=== PATIENT | male | born 1985 | race Caucasian/White ===

== ENCOUNTER 2017-05-16 18:35 | Emergency (ER) | payer SELFPAY ==
[2017-05-16 18:40] VITALS: BP 121/75; PULSE 76; RESP 17; TEMP 99.3; O2SAT 96
--- NOTE | 2017-05-16 19:24 | EDPHY ---
H & P Stated Complaint: st/fever chills HPI/ROS: CHIEF COMPLAINT: Sore throat, strep throat HISTORY OF PRESENT ILLNESS: Patient woke this morning with severe sore throat and body aches. He has also felt these had a fever. Symptoms are moderate to severe. [place] throughout the day chronically. They have worsened throughout the day. No headache. No chest pain. No shortness of breath. No nausea or vomiting. No trauma or injury. No difficulty swallowing but it is painful. Has had strep in the past, and this feels exactly the same to him. No other associated complaints or modifying factors REVIEW OF SYSTEMS: Ten systems reviewed and are negative unless otherwise noted in the HPI PAST MEDICAL HISTORY: Denies any medical history other than previous strep infections SOCIAL HISTORY: Nonsmoker. 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 Moderate erythema over the posterior pharynx. Moderate erythema and exudate on bilateral tonsils. Tonsils are symmetrically enlarged. Uvula is midline. No peritonsillar abscess. Airway widely patent Neck: Normal inspection, supple, non-tender her anterior cervical lymphadenopathy Respiratory: Lungs are clear to auscultation. No wheezing, rhonchi or crackles Cardiovascular: Regular rate and rhythm. No murmur Neurological: A&O, nonfocal, normal gait Skin: Warm and dry, no rash. No petechiae or purpura Extremities: Nontender, no pedal edema Psychiatric: Mood and affect normal DIFFERENTIAL DIAGNOSES: Including but not limited to strep pharyngitis, viral pharyngitis, strep tonsillitis, viral tonsillitis, Monico's, peritonsillar abscess MDM: 7:20 p.m. Acute strep pharyngitis and strep tonsillitis. No evidence of peritonsillar abscess. No evidence of Monico's angina. Discharged home with antibiotics, steroid, instructions to take [id number] anti-inflammatories. ER precautions discussed. Patient is comfortable with that plan and discharged home in stable condition SUPERVISION: This patient was independently evaluated without direct examination by the attending physician. Case was discussed with attending physician. Source: Patient Exam Limitations: No limitations - Personal History Current Tetanus/Diphtheria Vaccine: Unsure - Medical/Surgical History Hx Asthma: No Hx Chronic Respiratory Disease: No Hx Diabetes: No Hx Cardiac Disease: No Hx Renal Disease: No Hx Cirrhosis: No Hx Alcoholism: No Hx HIV/AIDS: No Hx Splenectomy or Spleen Trauma: No Other PMH: denies - Social History Smoking Status: Never smoked Constitutional: Initial Vital Signs Temperature (C) 99.3 F 05/16/17 18:38 Heart Rate 76 05/16/17 18:38 Respiratory Rate 17 05/16/17 18:38 Blood Pressure 121/75 H 05/16/17 18:38 O2 Sat (%) 96 05/16/17 18:38 O2 Delivery Mode Room Air Allergies/Adverse Reactions: No Known Allergies Allergy (Verified 05/16/17 18:38) Home Medications: Medication Instructions Recorded Amoxicillin/Clavulanate Pot 875 mg PO BID #14 tab 05/16/17 [Augmentin 875 MG TAB (*)] Dexamethasone [Decadron 4 MG (*)] 8 mg PO DAILY #2 tab 05/16/17 Medical Decision Making - Data Points Laboratory Results: 05/16/17 18:41 Group A Strep Screen POSITIVE H (NEGATIVE) Departure - Departure Disposition: Home, Routine, Self-Care Clinical Impression: Acute streptococcal pharyngitis Acute streptococcal tonsillitis Qualifiers: Streptococcal tonsillitis recurrence: non-recurrent Qualified Code(s): J03.00 - Acute streptococcal tonsillitis, unspecified Condition: Good Instructions: Strep Throat (ED), Tonsillitis (ED) Additional Instructions: 1. Medications as prescribed to completion 2. [id number] anti-inflammatories as discussed as needed 3. Increase fluid intake 4. ED precautions as discussed Referrals: NONE *PRIMARY CARE P,. [Primary Care Provider] - As per Instructions Cindy Vela MD [Medical Doctor] - As per Instructions Prescriptions: Amoxicillin/Clavulanate Pot [Augmentin 875 MG TAB (*)] 875 mg PO BID #14 tab Dexamethasone [Decadron 4 MG (*)] 8 mg PO DAILY #2 tab
== END 2017-05-16 19:33 | disposition home or self-care (01) ==
DX: J03.00 Acute streptococcal tonsillitis, unspecified (principal)